=== PATIENT | male | born 1965 | race Caucasian/White ===

== ENCOUNTER 2019-05-09 12:58 | Emergency (ER) | payer MEDICARE, MEDICAID ==
[~2019-05-09] VITALS: Ht 162.6 cm; Wt 53.9 kg
[~2019-05-09 12:58] MED LIST: FOLI-43 PO; LIDOcaine 1% W/epiNEPHrine 1:100,000 20ml vial ONE; MULT-1074 PO; NO HOME MEDS; THI100T PO
[2019-05-09 13:03] VITALS: BP 132/101
[2019-05-09] MEDS ORDERED: TETanus/Pertussis (Acell)/Diphther VAC/PF (Tdap-Adult) 0.5ml syringe IM ONE (13:40)
== END 2019-05-09 14:23 | disposition home or self-care (01) ==
LOC: ER 12:58
DX: S61.412A Laceration without foreign body of left hand, initial encounter (principal); G89.29 Other chronic pain; F15.90 Other stimulant use, unspecified, uncomplicated; Z56.0 Unemployment, unspecified; Z88.5 Allergy status to narcotic agent; Z79.899 Other long term (current) drug therapy; W22.8XXA Striking against or struck by other objects, initial encounter; Y93.89 Activity, other specified; Y92.89 Other specified places as the place of occurrence of the external cause; Y99.9 Unspecified external cause status
CPT/HCPCS: 12001; 90471; 99283

== ENCOUNTER → 2025-03-06 | Emergency (ER) | payer BC, MEDICAID ==
[~2025-03-06] VITALS: Ht 160 cm; Wt 68.0 kg
[~2025-03-06] MED LIST changes: +CEPH-585 PO; +HYDR-3973 PO; -LIDOcaine 1% W/epiNEPHrine 1:100,000 20ml vial ONE
[2025-03-06 10:29] VITALS: BP 122/95; PULSE 90; RESP 16; TEMP 98.6; O2SAT 97
[2025-03-06 11:27] LABS: LEUKOCYTE ESTERASE ,URINE SMALL (Neg); NITRITES, URINE POSITIVE (Neg); OCCULT BLOOD,URINE MODERATE (Neg)
[2025-03-06 11:33] LABS: UA COLLECTION TYPE NON-SPECIFIED
[2025-03-06 11:42] LABS: SQUAMOUS EPITHELIAL CELL,UR NONE SEEN /LPF (FEW)
[2025-03-06 12:00] LABS: MEAN PLATELET VOLUME 8.2 FL (7.4-10.4); RED CELL DISTRIBUTION WIDTH 15.4 % (11.5-14.5)
[2025-03-06 12:10] LABS: URINE AMPHETAMINE SCREEN NEGATIVE (Neg); URINE BARBITUATE SCREEN NEGATIVE (Neg); URINE BENZODIAZEPINES SCREEN NEGATIVE (Neg); URINE CANNABINOID SCREEN POSITIVE (Neg); URINE COCAINE SCREEN NEGATIVE (Neg); URINE METHADONE SCREEN NEGATIVE (Neg); URINE OPIATE SCREEN NEGATIVE (Neg); URINE PHENCYCLIDINE SCREEN NEGATIVE (Neg)
[2025-03-06 12:22] LABS: CREATININE 0.82 MG/DL (0.60-1.10); ETHANOL 188 MG/DL (<10); TOTAL CARBON DIOXIDE 29.3 MMOL/L (24-32); eCRCL 79 ML/MIN; eGFR > 90 ML/MIN
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
== END | disposition home or self-care (01) ==
LOC: ER 10:28 → EDBD 10:28
DX: Z00.00 Encounter for general adult medical examination without abnormal findings (principal); F12.90 Cannabis use, unspecified, uncomplicated; N40.0 Benign prostatic hyperplasia without lower urinary tract symptoms; Z88.5 Allergy status to narcotic agent; Z79.899 Other long term (current) drug therapy; Z20.822 Contact with and (suspected) exposure to COVID-19
CPT/HCPCS: 36415; 51798; 80048; 80305; 80320; 81001; 84443; 85025; 87811; 99284; A4340; C1758

== ENCOUNTER 2025-03-07 09:26 | Emergency (ER) | payer BC, MEDICAID ==
[~2025-03-07] VITALS: Ht 162.6 cm; Wt 66.7 kg
[~2025-03-07 09:26] MED LIST changes: -CEPH-585 PO; -HYDR-3973 PO
[2025-03-07 10:28] LABS: LEUKOCYTE ESTERASE ,URINE SMALL (Neg); NITRITES, URINE POSITIVE (Neg); OCCULT BLOOD,URINE LARGE (Neg)
[2025-03-07 10:31] LABS: MEAN PLATELET VOLUME 8.4 FL (7.4-10.4); RED CELL DISTRIBUTION WIDTH 15.6 % (11.5-14.5)
[2025-03-07 10:34] LABS: UA COLLECTION TYPE NON-SPECIFIED
[2025-03-07 10:36] LABS: MUCUS STRANDS FEW /LPF (Neg); SQUAMOUS EPITHELIAL CELL,UR FEW /LPF (FEW)
[2025-03-07 10:50] LABS: URINE AMPHETAMINE SCREEN NEGATIVE (Neg); URINE BARBITUATE SCREEN NEGATIVE (Neg); URINE BENZODIAZEPINES SCREEN NEGATIVE (Neg); URINE CANNABINOID SCREEN POSITIVE (Neg); URINE COCAINE SCREEN NEGATIVE (Neg); URINE METHADONE SCREEN NEGATIVE (Neg); URINE OPIATE SCREEN NEGATIVE (Neg); URINE PHENCYCLIDINE SCREEN NEGATIVE (Neg)
[2025-03-07 10:55] LABS: CREATININE 0.65 MG/DL (0.60-1.10); ETHANOL 39 MG/DL (<10); TOTAL CARBON DIOXIDE 29.5 MMOL/L (24-32); eCRCL 104 ML/MIN; eGFR > 90 ML/MIN
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
[2025-03-07] MEDS ORDERED: CEPH-585 PO (12:09)
[2025-03-07] MEDS ORDERED: HYDR-3973 PO (12:09)
[2025-03-07] MEDS: HYDROcodone/acetaminophen 10/325mg tab PO ONE (13:02)
[2025-03-07 13:22] VITALS: BP 131/82; PULSE 77; RESP 16; TEMP 98.3; O2SAT 96
[2025-03-09] MEDS ORDERED: CEPH-585 PO (10:51)
== END 2025-03-07 13:14 | disposition home or self-care (01) ==
LOC: ER 09:26
DX: F29 Unspecified psychosis not due to a substance or known physiological condition (principal); N39.0 Urinary tract infection, site not specified; Z88.5 Allergy status to narcotic agent; Z79.899 Other long term (current) drug therapy; Z20.822 Contact with and (suspected) exposure to COVID-19
CPT/HCPCS: 36415; 80048; 80305; 80320; 81001; 84443; 85025; 87811; 99285

== ENCOUNTER 2025-08-09 03:35 | Emergency (ER) | payer BC, MEDICAID ==
[~2025-08-09] VITALS: Ht 162.6 cm; Wt 62.0 kg
[~2025-08-09 03:35] MED LIST changes: +CEPH-585 PO
[2025-08-09 05:17] VITALS: TEMP 97.8
--- NOTE | 2025-08-09 08:04 | Physician Documentation ---
History of Present Illness ~ Chief Complaint: Urinary Symptoms Stated Complaint: CATHETER COMPLICATIONS Time Seen by MD: 07:53 Primary Medical Doctor: VASILE GALARZA 60-year-old male presenting for a urinary catheter problem. The patient had a urinary catheter placed four days ago due to urinary retention. He states that over the past 12 hours he feels like it is not draining properly and that there has been some back flow of urine. He denies any pain or burning sensation. He also states that he was not given any additional bags to change the bag once it gets full. No other complaints. Medication Reconciliation Allergies: Coded Allergies: codeine (Unverified Allergy, Unknown, 08/05/25) TOLERATED MORPHINE 2012 Scheduled Cephalexin*Monohydrate* (Keflex*), 1 CAP PO Q6H Folic Acid* (Folic Acid*), 1 MG PO DAILY Multivitamin (Multi-Vitamin Daily), 1 EACH PO DAILY Thiamine Hcl* (Thiamine Hcl*), 100 MG PO DAILY Miscellaneous Medications Home Med List (No Home Medications), (Reported) Past Medical History Past Medical History: Chronic Back Pain, Depression Past Surgical History: no surgical history Alcohol Use: Alcoholic Drug Use: methamphetamine Lives with: Alone Lives In: Home Occupation: unemployed Review of Systems All Other Systems at this time: Reviewed and Negative Physical Exam Vital Signs: Temperature: 97.8, Source: Temporal, Heart Rate: 108, Respiratory Rate: 18, BP: 152/109, Pulse Oximetry: 94, Weight: 62.000 Oxygen Flow Rate: 0 Physical Exam I have reviewed the triage vitals. CONST: Well developed and well nourished. In no acute distress HENT: Head Atraumatic EYES: Pupils are equal, round and reactive to light. Normal conjunctiva NECK: Normal range of motion. Supple. CARDIO: Normal rate and regular rhythm. No murmurs, rubs, or gallops. S1, S2. PULM/CHEST: No respiratory distress. Lungs clear to auscultation. No wheeze ABD: Soft and nontender. Nondistended. Bowel sounds normal. No guarding. : Urinary catheter in place draining yellow urine MSK: No edema. No deformity. NEURO: Alert and oriented to person, place and time. Moving all extremities SKIN: Warm and dry. PSYCH: Normal mood and affect. Good eye contact. Progress Results/Orders Results/Orders Orders - PAKO GODFREY MD * (A) Muñoz- Protocol * ONCE (08/09/25 08:00) Cult Urine + [address] (08/09/25 08:20) Completed Orders - PAKO GODFREY MD Ua W/Microscopic, Cult If Ind (08/09/25 07:50) Vital Signs 08/09/25 08/09/25 08/09/25 08/09/25 03:35 05:17 05:22 08:31 Temp 98.0 97.8 Pulse 98 104 108 107 Resp 20 15 18 22 B/P (MAP) 154/119 83/52 (62) 152/109 (123) 164/116 (132) Pulse Ox 95 99 94 98 O2 Flow Rate 0 0 0 08/09/25 09:01 Pulse 100 Resp 18 B/P (MAP) 147/92 (110) Pulse Ox 95 O2 Flow Rate 0 Laboratory Tests Test 08/09/25 07:50 Urine Specimen Description Muñoz cath Urine Color Yellow Urine Clarity Cloudy Urine pH 6.0 Urine Specific [place] >=1.030 Urine Protein 100 H Urine Glucose (UA) Negative Urine Ketones 40 H Urine Occult Blood Moderate H Urine Nitrite Negative Urine Bilirubin Small Urine Urobilinogen 0.2 Urine Leukocyte Esterase Negative Urine RBC Tntc Urine WBC 10-20 H Urine Squamous Epithelial Cells None seen Urine Bacteria 1+ Urine Mucus None seen Urine Sperm Few Urine Culture Indicated Indicated Volume Urine Centrifuged 5 ml Urine Comment Low volume Microbiology Date/Time Source Procedure Growth Status 08/09/25 08:20 Urine Muñoz Cath Urine Culture - Preliminary Culture received. Resulted Medical Decision Making Additional information obtaine: old records Findings - Urinary Diff Dx:Considerations: Include: Urinary retention, UTI Genital Diff Dx:Considerations: Include: Balanitis, Balanoposthitis, Foreign body, Inguinal hernia, Paraphimosis, Prostatitis, Urinary retention, Urethritis Additional Comment 60-year-old male presenting with a urinary catheter problem. The catheter was flushed and afterwards it was draining normally and functioning well. The patient's catheter bag was changed as well and he was given several back to take home with him. He has instructions to follow up with Urology and he states that he will be able to see them in five days. I advised him to keep this appointment. He was also instructed on Muñoz catheter care. His urinalysis shows some mild blood, protein and squamous cells but no signs of any urinary tract infection. Patient in my opinion is stable and safe for discharge back home. All social determinants of health and chronic medical conditions were considered. He is to follow up closely with Urology in five days as well as with his PCP. He was given strict return precautions and advised to return to the ED with any acutely worsening symptoms. He expressed full understanding. Departure Disposition: HOME / SELF CARE / HOMELESS Impression: Primary Impression: Muñoz catheter problem Additional Impression: Urinary retention Discharge Instructions: Indwelling Urinary Catheter Care, Adult Additional Instructions: Please change your Muñoz catheter bags as needed when they get full. Please keep your appointment with Urology and follow up with them. Keep Muñoz catheter in place at all times until you see Urology. Return to the ED with any acutely worsening symptoms. Referrals: NO PRIMARY CARE PROVIDER (PCP) Signature Scribe Signature: 1 Attestation: The note accurately reflects work and decisions made by me.Pako Huizar MD 08/09/25 09:40 PAKO GODFREY MD Aug 09, 2025 08:04
[2025-08-09 08:13] LABS: LEUKOCYTE ESTERASE ,URINE NEGATIVE (Neg); NITRITES, URINE NEGATIVE (Neg); OCCULT BLOOD,URINE MODERATE (Neg)
[2025-08-09 08:17] LABS: UA COLLECTION TYPE FOLEY CATH
[2025-08-09 08:19] LABS: MUCUS STRANDS NONE SEEN /LPF (Neg); SPERM FEW /HPF (NEGATIVE); SQUAMOUS EPITHELIAL CELL,UR NONE SEEN /LPF (FEW)
[2025-08-09 09:01] VITALS: BP 147/92; PULSE 100; RESP 18; O2SAT 95
[2025-08-10] MEDS ORDERED: CEFP200T13 PO (09:17)
== END 2025-08-09 10:13 | disposition home or self-care (01) ==
LOC: ER 03:35
DX: T83.9XXA Unspecified complication of genitourinary prosthetic device, implant and graft, initial encounter (principal); R33.9 Retention of urine, unspecified; G89.29 Other chronic pain; F10.90 Alcohol use, unspecified, uncomplicated; F15.90 Other stimulant use, unspecified, uncomplicated; Z88.5 Allergy status to narcotic agent; Z79.899 Other long term (current) drug therapy; Z56.0 Unemployment, unspecified; Z60.2 Problems related to living alone; Y90.9 Presence of alcohol in blood, level not specified; Y84.6 Urinary catheterization as the cause of abnormal reaction of the patient, or of later complication, without mention of misadventure at the time of the procedure
CPT/HCPCS: 81001; 87088; 99283; A4340; A4358; A5200